=== PATIENT | female | born 1975 | race Caucasian/White ===

== ENCOUNTER → 2020-10-14 08:51 | Outpatient (BNVA) | payer SELFPAY | PROVIDERS: PCP Internal Medicine | DX: Z11.1 Encounter for screening for respiratory tuberculosis (principal) ==

== ENCOUNTER → 2020-12-02 09:29 | Outpatient (BNVA) | payer SELFPAY | PROVIDERS: PCP Internal Medicine | DX: Z01.84 Encounter for antibody response examination (principal) | CPT/HCPCS: 90710 ==

== ENCOUNTER 2021-03-29 08:59 | Emergency (ER) | payer OTHER, SELFPAY ==
--- NOTE | ~2021-03-29 | XR_ITS ---
EXAMINATION: XR CHEST CLINICAL INFORMATION: Chest pain. COMPARISON: None TECHNIQUE: Frontal view of the chest was obtained. FINDINGS: No significant abnormality is noted involving the heart, lungs, mediastinum, bony thorax or soft tissues. XR/XR chest 1V IMPRESSION: No acute cardiopulmonary process.
--- NOTE | ~2021-03-29 | CT_ITS ---
EXAMINATION: CT ANGIOGRAM OF THE CHEST WITH AND WITHOUT CONTRAST (CT PULMONARY ANGIOGRAM FOR PE) CLINICAL INFORMATION: Reason for Exam Chest pain elevated D-dimer COMPARISON: None TECHNIQUE: Prior to contrast administration, noncontrast localization images were obtained. Subsequently, multidetector volumetric imaging was performed from the thoracic inlet to below the diaphragms following the administration of 80 mL Omnipaque 350 intravenous contrast. No contrast reaction reported Sagittal, coronal, and MIP oblique sagittal reformatted images were obtained on the CT workstation, uploaded to PACS, and reviewed. This CT examination was performed using dose optimization techniques as appropriate, variously including the following: *Automated exposure control *Adjustment of mA and/or kV according to patient size (this includes techniques or standardized protocols for targeted exams where dose is matched to indication/reason for exam; i.e. extremities or head) *Use of iterative reconstruction technique Total exam dose-length product 561 mGy-cm FINDINGS: QUALITY OF STUDY/CONTRAST BOLUS: Suboptimal. PULMONARY ARTERIES: The examination is limited by suboptimal bolus timing with artifact from contrast in the superior vena cava and by patient body habitus. Low no large central or segmental mental pulmonary emboli are demonstrated. THORACIC AORTA: No aneurysm or dissection. LUNG: No focal consolidation, nodules or masses. PLEURA: No pleural effusion or pneumothorax. MEDIASTINUM: Normal heart size. No pericardial effusion. No hilar or mediastinal lymphadenopathy. No evidence of septal bowing or right heart strain. CHEST WALL/AXILLA: No axillary or internal mammary lymphadenopathy. OSSEOUS STRUCTURES: No acute or suspicious osseous abnormality. Mild multilevel spondylosis is present in the thoracic spine. UPPER ABDOMEN: Unremarkable. No reflux of contrast into the hepatic veins to suggest elevated right heart pressures. CT/CT angio chest PE protocol IMPRESSION: 1. Suboptimal evaluation with no evidence for large central or segmental pulmonary emboli. 2. Clear lungs. VTE: negative
--- NOTE | 2021-03-29 09:02 | ECG_ITS ---
Test Reason : CHEST PAIN Blood Pressure : / mmHG Vent. Rate : 079 BPM Atrial Rate : 079 BPM P-R Int : 142 ms QRS Dur : 080 ms QT Int : 366 ms P-R-T Axes : 028 018 027 degrees QTc Int : 419 ms Normal sinus rhythm Normal ECG No previous ECGs available Referred By: Generic ED Physician Electronically Signed By:LAURENT HOYT
[2021-03-29 11:11] VITALS: BP 132/69; PULSE 82; O2SAT 99; BMI 42.3
[2021-03-29 11:48] LABS: MANUAL DIFF FLAG NO
[2021-03-29 11:49] LABS: Basophils Percent Auto 0.4 % (0-2); Eosinophils Absolute Auto 0.2 X10*3/uL (0.0-0.4); Eosinophils Percent Auto 1.3 % (0-4); Hematocrit 39.4 % (37-47); Hemoglobin 12.4 g/dl (12.0-16.0); Imm Gran Abs Auto 0.03 X10*3/uL (0.00-0.03); Imm Gran Pct Auto 0.3 % (0.0-0.4); Lymphocytes Percent Auto 26.7 % (20-40); Mean Corpuscular HGB Conc 31.5 g/dl (31.0-35.0); Mean Corpuscular Hemoglobin 26.7 pg (27.0-33.0); Mean Corpuscular Volume 84.7 fL (80-98); Mean Platelet Volume 10.7 fL (9.4-12.3); Monocytes Absolute Auto 0.7 X10*3/uL (0.1-1.2); Monocytes Percent Auto 6.3 % (2-11); Neutrophils Absolute Auto 7.4 X10*3/uL (2.0-8.3); Platelet Count 305 X10*3/uL (160-400); Red Blood Count 4.65 X10*6/uL (4.20-5.50); Red Cell Distribution Width 14.2 % (11.0-16.0); White Blood Count 11.4 X10*3/uL (4.8-10.8)
--- NOTE | 2021-03-29 11:49 | ED.CHESTPAIN ---
HPI - Chest Pain General Chief Complaint: Chest Pain Stated Complaint: CHEST PAIN Time Seen by Provider: 03/29/21 11:16 Source: patient Mode of arrival: ambulatory Limitations: no limitations History of Present Illness HPI narrative: Patient's history of stable hypertension on lisinopril no known coronary artery disease nonsmoker no significant family history of coronary artery disease was doing okay for last 3 days complaining of pain the mid chest like a bandlike feeling going to the back get worse when she lies down, denies any shortness of breath does not get worse when she exerted ambulates no cough no jaw pain or arm pain no diaphoresis no nausea no vomiting no GI complaints patient never had similar pain in the past Related Data Allergies Allergy/AdvReac Type Severity Reaction Status Date / Time erythromycin base Allergy Mild HIVES Unverified 03/13/20 15:15 [ERYTHROMYCIN BASE] Sulfa (Sulfonamide Allergy Mild HIVES Unverified 03/13/20 15:15 Antibiotics) [SULFA (SULFONAMIDE ANTIBIOTICS)] sulfamethoxazole Allergy Mild HIVES Unverified 03/13/20 15:15 [From BACTRIM DS] trimethoprim Allergy Mild HIVES Unverified 03/13/20 15:15 [From BACTRIM DS] amoxicillin [AMOXICILLIN] Allergy Unknown RASH Unverified 03/13/20 15:15 Penicillins [PENICILLINS] Allergy Unknown RASH Unverified 03/13/20 15:15 Amox Allergy Unknown vomiting, Uncoded 12/07/12 00:00 rash bactrim Allergy Unknown vomiting, Uncoded 12/07/12 00:00 rash E-mycin Allergy Unknown vomiting, Uncoded 12/07/12 00:00 rash PCN Allergy Unknown vomiting, Uncoded 12/07/12 00:00 rash sulfa Allergy Unknown vomiting, Uncoded 12/07/12 00:00 rash Review of Systems Review of Systems: Yes all other systems are reviewed and are negative [facility] Social History Social History Alcohol intake: never Patient Tobacco Use Status: Never used Tobacco Use of substances other than those prescribed or required for medical reasons: No Advance Directives: No Advance Directives Information Provided: Yes Patient : No Physical Exam Vital Signs: Vital Signs: Last Vital Signs Pulse 73 03/29/21 13:26 Resp 16 03/29/21 13:26 BP 132/69 03/29/21 11:11 Pulse Ox 99 03/29/21 11:11 Body Mass Index 42.3 Appearance: Alert. Oriented X3. No acute distress. Eyes: No pallor or icterus ENT: Pharynx normal. Oral Mucosa moist Neck: Normal inspection. Neck supple. CVS: Normal heart rate and rhythm. Pulses normal. Respiratory: No respiratory distress. Equal air entry bilateral, no wheezing/rales/rhonchi Abdomen: Soft and nontender. Bowel sounds are present, no mass palpable, Skin: Skin warm and dry. Normal skin color. Normal skin turgor. Extremities: No lower extremity edema. No calf tenderness Neuro: Oriented X 3. MDM - Chest Pain MDM Narrative Medical decision making narrative: Patient heart score of 1 atypical chest pain for 3 days normal EKG and negative troponin CTA negative for any central emboli pain scan of atypical or 3 days of duration likely secondary to esophageal spasm will discharge patient on Prilosec advised patient to follow with PCP for further evaluation including stress test Lab Data Attestation: I reviewed the patient's lab results. Result diagrams: 03/29/21 11:43 03/29/21 11:43 Labs: Lab Results 03/29/21 03/29/21 03/29/21 Range/Units 11:43 11:43 11:43 WBC 11.4 H (4.8-10.8) X10*3/uL RBC 4.65 (4.20-5.50) X10*6/uL Hgb 12.4 (12.0-16.0) g/dl Hct 39.4 (37-47) % MCV 84.7 (80-98) fL MCH 26.7 L (27.0-33.0) pg MCHC 31.5 (31.0-35.0) g/dl RDW 14.2 (11.0-16.0) % Plt Count 305 (160-400) X10*3/uL MPV 10.7 (9.4-12.3) fL Immature Gran % (Auto) 0.3 (0.0-0.4) % Neut % (Auto) 65.0 (45-73) % Lymph % (Auto) 26.7 (20-40) % Sandoval % (Auto) 6.3 (2-11) % Eos % (Auto) 1.3 (0-4) % Baso % (Auto) 0.4 (0-2) % Lymph # (Auto) 3.0 (1.2-4.9) X10*3/uL Sandoval # (Auto) 0.7 (0.1-1.2) X10*3/uL Eos # (Auto) 0.2 (0.0-0.4) X10*3/uL Baso # (Auto) 0.0 (0.0-0.2) X10*3/uL Abs Immat Gran (auto) 0.03 (0.00-0.03) X10*3/uL Absolute Neuts (auto) 7.4 (2.0-8.3) X10*3/uL Absolute Nucleated RBC 0.000 (0.0-0.012) X10*3/uL Nucleated RBC % (auto) 0.0 (0.0-0.2) /100WBC PT (9.9-13.0) SEC INR (0.9-1.1) D-Dimer NG/ML Sodium 138 (135-145) mmol/L Potassium 4.5 (3.3-5.1) mmol/L Chloride 107 (96-108) mmol/L Carbon Dioxide 22 (22-29) mmol/L Anion Gap 14 (12-20) BUN 14 (9-16) mg/dL Creatinine 0.70 (0.5-1.4) mg/dL Estim Creat Clear Calc 131.3 Estimated GFR > 60 Random Glucose 89 (60-115) mg/dL Calcium 9.3 (8.4-10.2) mg/dL Total Bilirubin 0.3 (0.0-1.0) mg/dL Direct Bilirubin 0.2 (0.0-0.5) mg/dL AST 18 (5-31) U/L ALT 24 (0-31) U/L Alkaline Phosphatase 90 (39-117) U/L Troponin I High Sens < 3.5 (<3.5-17.0) ng/L Total Protein 7.4 (6.5-8.0) g/dL Albumin 4.2 (3.5-5.0) g/dL 03/29/21 Range/Units 11:43 WBC (4.8-10.8) X10*3/uL RBC (4.20-5.50) X10*6/uL Hgb (12.0-16.0) g/dl Hct (37-47) % MCV (80-98) fL MCH (27.0-33.0) pg MCHC (31.0-35.0) g/dl RDW (11.0-16.0) % Plt Count (160-400) X10*3/uL MPV (9.4-12.3) fL Immature Gran % (Auto) (0.0-0.4) % Neut % (Auto) (45-73) % Lymph % (Auto) (20-40) % Sandoval % (Auto) (2-11) % Eos % (Auto) (0-4) % Baso % (Auto) (0-2) % Lymph # (Auto) (1.2-4.9) X10*3/uL Sandoval # (Auto) (0.1-1.2) X10*3/uL Eos # (Auto) (0.0-0.4) X10*3/uL Baso # (Auto) (0.0-0.2) X10*3/uL Abs Immat Gran (auto) (0.00-0.03) X10*3/uL Absolute Neuts (auto) (2.0-8.3) X10*3/uL Absolute Nucleated RBC (0.0-0.012) X10*3/uL Nucleated RBC % (auto) (0.0-0.2) /100WBC PT 11.3 (9.9-13.0) SEC INR 1.0 (0.9-1.1) D-Dimer 391 NG/ML Sodium (135-145) mmol/L Potassium (3.3-5.1) mmol/L Chloride (96-108) mmol/L Carbon Dioxide (22-29) mmol/L Anion Gap (12-20) BUN (9-16) mg/dL Creatinine (0.5-1.4) mg/dL Estim Creat Clear Calc Estimated GFR Random Glucose (60-115) mg/dL Calcium (8.4-10.2) mg/dL Total Bilirubin (0.0-1.0) mg/dL Direct Bilirubin (0.0-0.5) mg/dL AST (5-31) U/L ALT (0-31) U/L Alkaline Phosphatase (39-117) U/L Troponin I High Sens (<3.5-17.0) ng/L Total Protein (6.5-8.0) g/dL Albumin (3.5-5.0) g/dL ECG Data ECG #1: Interpretation: Normal sinus rhythm heart rate 79 beats per minute normal intervals normal axis no acute ischemia Scores Heart Score History: -0- slightly suspicious ECG: -0- normal Age: -0- < or = 45 Risk factory: -1- 1 or 2 risk factors Troponin: -0- < or = normal limit Score: 1 Risk: 1.7% Discharge Plan Discharge Clinical Impression: Chest pain Qualifiers: Chest pain type: precordial pain Qualified Code(s): R07.2 - Precordial pain Patient Disposition: Home, Self-Care Instructions: Chest Pain (ED) Additional Instructions: Etiology of chest pain is not very clear likely esophageal spasm start taking Prilosec/Tums/Maalox. Follow with primary care doctor for further evaluation including stress test
[2021-03-29 12:03] LABS: Prothrombin Time 11.3 SEC (9.9-13.0)
[2021-03-29 12:06] LABS: D Dimer 391 NG/ML
[2021-03-29 12:33] LABS: Alanine Aminotransferase 24 U/L (0-31); Albumin Level 4.2 g/dL (3.5-5.0); Alkaline Phosphatase 90 U/L (39-117); Anion Gap 14 (12-20); Aspartate Amino Transferase 18 U/L (5-31); Bilirubin Direct 0.2 mg/dL (0.0-0.5); Bilirubin Total 0.3 mg/dL (0.0-1.0); Blood Urea Nitrogen 14 mg/dL (9-16); Calcium 9.3 mg/dL (8.4-10.2); Carbon Dioxide 22 mmol/L (22-29); Chloride 107 mmol/L (96-108); Creatinine Clr Calc Pharmacy 131.3; Estimated Glomerular Filt Rate > 60; Glucose Random 89 mg/dL (60-115); Potassium 4.5 mmol/L (3.3-5.1); Sodium 138 mmol/L (135-145); Total Protein 7.4 g/dL (6.5-8.0)
[2021-03-29 12:37] LABS: Troponin-I High Sensitivity < 3.5 ng/L (<3.5-17.0)
[2021-03-29 13:26] VITALS: PULSE 73; RESP 16
[2021-03-29] MEDS: Aspirin 81 MG TAB.CHEW 162 MG PO (13:36)
[2021-03-29] MEDS: iohexoL 350 MG/ML 100 ML INFUS..BTL IV (14:54)
[2021-03-29 16:09] VITALS: PULSE 79; RESP 18
[2021-03-29] MEDS: Magnesium Hydrox/Alum Hydrox 30 ML ORAL.SUSP PO (16:09)
[2021-03-29] MEDS: Omeprazole 40 MG CAPSULE.DR PO (16:09)
== END 2021-03-29 16:19 | disposition home or self-care (01) ==
PROVIDERS: Emergency Provider Internal Medicine; PCP Internal Medicine
DX: R07.2 Precordial pain (principal); R07.9 Chest pain, unspecified; I10 Essential (primary) hypertension; I25.10 Atherosclerotic heart disease of native coronary artery without angina pectoris; Z79.899 Other long term (current) drug therapy
CPT/HCPCS: 36415; 71045; 71275; 80048; 80076; 84484; 85025; 85379; 85610; 93005; 99284; Q9967